=== PATIENT | female | born 1990 | race Caucasian/White ===

== ENCOUNTER 2022-05-19 18:34 | Outpatient (CLI) | payer OTHER, SELFPAY ==
[2022-05-20 00:27] LABS: Chlamydia DNA Amplified* NOT DETECTED (No Detected); GC DNA Amplified* NOT DETECTED (No Detected)
== END 2022-05-19 18:35 | disposition home or self-care (01) ==
LOC: LKVREF 18:35
PROVIDERS: PCP Emergency Medicine; Visit Provider Emergency Medicine
DX: Z20.2 Contact with and (suspected) exposure to infections with a predominantly sexual mode of transmission (principal); F41.9 Anxiety disorder, unspecified
CPT/HCPCS: 87491; 87591

== ENCOUNTER 2022-10-26 08:44 | Emergency (ER) | payer OTHER, SELFPAY ==
[2022-10-26] VITALS (8 sets, daily range): BP systolic 110–150; BP diastolic 71–97; PULSE 66–75; TEMP 36; O2SAT 97–98; BMI 21.8
[2022-10-26 09:38] LABS: Lactate* 0.6 mmol/L (0.5-1.9)
[2022-10-26 09:41] LABS: Appearance Urine Clear (Clear); Bilirubin Urine Negative (Negative); Blood Urine 1+ (Negative); Color Urine Yellow (Yellow); Glucose Urine Negative (Negative); Ketones Urine Negative (Negative); Leukocyte Esterase Urine Trace (Negative); Nitrite Urine Negative (Negative); Protein Urine Negative (Negative); pH Urine 6.5 (5.0-8.5)
[2022-10-26 09:42] LABS: Basophils Absolute Auto 0.01 K/uL (0.00-0.30); Basophils Percent Auto 0.2 % (0.0-3.0); Eosinophils Absolute Auto 0.13 K/uL (0.00-0.50); Eosinophils Percent Auto 2.3 % (0.0-7.0); Hematocrit 41.2 % (33.0-51.0); Immature Granulocytes Abs Auto 0.01 K/uL (0.00-0.30); Immature Granulocytes Pct Auto 0.2 %; Lymphocytes Percent Auto 14.2 % (20-44); Mean Corpuscular HGB Conc 34 gm/dL (32-36); Mean Corpuscular Hemoglobin 33 pg (26-34); Mean Corpuscular Volume 97 fL (80-100); Monocytes Percent Auto 8.9 % (0.0-11.0); Neutrophils Percent Auto 74.2 % (42.0-72.0); Platelet Count* 205 K/uL (140-440); RDW Coefficient of Variation % 13.1 % (11.5-15.5); Red Blood Count 4.25 m/uL (4.00-5.20)
[2022-10-26] MEDS: 0.9 % SODIUM CHLORIDE 1000 ml 1,000 ML IV (09:43)
[2022-10-26] MEDS: KETOROLAC 15 MG/ML inj IVP (09:43)
[2022-10-26] MEDS: ONDANSETRON 2 MG/ML inj 4 MG IVP (09:43)
[2022-10-26 09:44] LABS: Slide Review Reflex No
[2022-10-26 09:59] LABS: Bacteria Urine Few; Squamous Epithelial Cell Urine Many (None-Few); Ur HCG Qualitative* Negative (Negative); WBC Urine 0-2 (0-5)
[2022-10-26 10:08] LABS: Albumin* 4.1 g/dL (3.3-5.0); Chloride* 103 mmol/L (96-114)
[2022-10-26 10:09] LABS: Sodium* 134 mmol/L (135-149)
[2022-10-26 10:11] LABS: Aspartate Amino Transferase* 29 U/L (12-35); Bilirubin Direct* 0.3 mg/dL (0.0-0.5); Bilirubin Total* 0.7 mg/dL (0.1-1.5); Carbon Dioxide* 27 mmol/L (20-32); Creatinine* 0.7 mg/dL (0.5-1.5); Est. Creatinine Clearance* 106.01; Estimated Glomerular Filt Rate 116 ml/min; Total Protein* 7.3 g/dL (6.0-8.3)
[2022-10-26 10:12] LABS: Alanine Aminotransferase* 20 U/L (4-35); Alkaline Phosphatase* 64 U/L (40-150); Blood Urea Nitrogen* 11 mg/dL (5-24); Calcium* 8.7 mg/dL (8.4-10.6); Glucose* 113 mg/dL (60-115); Lipase* 63 U/L (23-300)
[2022-10-26 10:14] LABS: C Reactive Protein* 1.1 mg/dL (0.5-1.0)
[2022-10-26 10:24] LABS: SARS PCR* Negative SARS-CoV-2 (Negative)
--- NOTE | 2022-10-26 12:56 | ED_ITS ---
HPI - General Adult General Date Seen: 10/26/22 Chief complaint: Abdominal Pain Stated complaint: Abdominal/back pain/nausea Time Seen by Provider: 10/26/22 09:10 Source: patient Mode of arrival: ambulatory Limitations: no limitations History of Present Illness HPI narrative: Patient is a 32-year-old woman who comes in for evaluation of abdominal and back pain along with diarrhea which has been present for the past days. No one else at home has been sick. She has not had fevers although she has felt chilled. She says she just had a urinary tract infection a month ago and so she always worries about that a little bit but she has not had any urinary symptoms which would be typical for her. She has normal periods, her last period was about 3 weeks ago, no suspicion of . No new sexual partners or concerns about exposure to STDs. Abdominal pain is crampy and diffuse, mild to moderate in intensity. Radiates to her back into her hips. Related Data Previous Rx's Medication Instructions Recorded norgestrel 0.3 mg-ethinyl 1 tab PO DAILY #84 tabs 05/19/22 estradiol 30 mcg tablet escitalopram oxalate 5 mg tablet 5 mg PO QDAY #90 tabs 08/18/22 Allergies Allergy/AdvReac Type Severity Reaction Status Date / Time metronidazole Allergy Mild Rash Verified 05/19/22 17:46 Review of Systems Status of ROS: Reports: 10 or more systems reviewed and unremarkable except as noted in History and below [facility] Medical History Anxiety Contraception management Possible exposure to STD Family History Brother Diabetes Father Family history of early CAD Liver cancer Maternal Grandmother Breast cancer Social History Smoking Status: Never smoker How often do you have a drink containing alcohol: 2-3 times a week How many standard drinks containing alcohol do you have on a typical day: 1 or 2 How often do you have six or more drinks on one occasion: Never AUDIT-C Alcohol total score: 3 Non-prescribed substance use: denies use Little interest or pleasure in doing things: not at all Feeling down, depressed, or hopeless: not at all Exam Narrative: Exam Narrative: Vital signs as noted above. In general, an alert, well-appearing patient. Head: Normocephalic, atraumatic. Eyes: Pupils are equal reactive. Extraocular movements are full. Conjunctivae are normal. ENT: Mucous membranes are moist. Throat is normal. Neck: Supple without lymphadenopathy. Heart: Regular rate and rhythm. No murmur or rub. Lungs: Clear bilaterally. No increased work of breathing, crackles or wheezes. Abdomen: Soft with minimal diffuse tenderness, no rebound guarding or rigidity. Bowel sounds are active. Back: No CVA tenderness Extremities: Well perfused. No edema. No calf tenderness. Pulses intact. Neurologic: Patient is alert and oriented to person and place. Speech is fluent. Face is symmetric. Moves all extremities equally. Affect: Normal. Skin: Warm and dry. Well perfused. Const: Vital Signs, click to edit/add: Vital Signs - 24 hr 10/26/22 08:59 10/26/22 09:38 10/26/22 09:39 Temperature 96.8 F L Pulse Rate 70 70 Pulse Rate [Pulse Oximeter] 75 Blood Pressure 150/85 H Blood Pressure [Ri ght Upper Arm] 141/97 H Pulse Oximetry 97 98 97 Oxygen Delivery Me thod Room Air 10/26/22 10:00 10/26/22 10:23 10/26/22 10:30 Temperature Pulse Rate 68 69 66 Pulse Rate [Pulse Oximeter] Blood Pressure 125/81 Blood Pressure [Ri ght Upper Arm] Pulse Oximetry 97 98 97 Oxygen Delivery Me thod 10/26/22 10:32 10/26/22 11:02 Temperature Pulse Rate 67 70 Pulse Rate [Pulse Oximeter] Blood Pressure 120/79 110/71 Blood Pressure [Ri ght Upper Arm] Pulse Oximetry 97 97 Oxygen Delivery Me thod Documenting provider has reviewed patient's vital signs: yes Course Course Hospital Course: We placed an IV here. She had a L of normal saline. Diagnostic considerations include enteritis, appendicitis, diverticulitis, colitis, bowel obstruction, cholecystitis, pyelonephritis, pancreatitis. Labs overall reassuring. Her white count is 5.7, hemoglobin of 14. Mild left shift with 74% neutrophils. Diff of the [place] unremarkable. Electrolytes show a sodium of 134 otherwise normal. BUN and creatinine are normal. LFTs are unremarkable, CRP is essentially normal at 1.1. Lipase is 63. Urinalysis is negative aside from 1+ blood, 2-5 red cells, 0-2 white cells, she has many squames few bacteria. test is negative. COVID is negative as well. I do not think this represents another urinary tract infection or pyelonephritis for her. She does not have focal right upper quadrant tenderness and LFTs are normal, I do not think gallbladder imaging is necessary. She is feeling improved after Zofran a nd Toradol as well as fluids. She has not had previous abdominal surgery and I think bowel obstruction is unlikely. I think this likely represents enteritis and I think it is reasonable to let her go home. She can use ibuprofen or Tylenol as needed for discomfort. If she develops high fever, severe or localized abdominal pain, bloody stools or other worsening she should return for re-evaluation. Otherwise, discussed that symptoms likely will resolve over the next several days. If no improvement over the next week, recheck with primary care. Vital Signs Vital signs: Initial Vital Signs Temperature 96.8 F L 10/26/22 08:59 Temperature Source Temporal Artery Scan 10/26/22 08:59 Pulse Rate 75 10/26/22 08:59 Blood Pressure 141/97 H 10/26/22 08:59 Blood Pressure Mean 111 10/26/22 08:59 Blood Pressure Position Sitting 10/26/22 08:59 Pulse Oximetry 97 10/26/22 08:59 Oxygen Delivery Method 10/26/22 08:59 Vital Signs Temperature 96.8 F L 10/26/22 08:59 Pulse Rate 75 10/26/22 08:59 Blood Pressure 141/97 H 10/26/22 08:59 Pulse Oximetry 97 10/26/22 08:59 Oxygen Delivery Method 10/26/22 08:59 Temperature 96.8 F L 10/26/22 08:59 Pulse Rate 70 10/26/22 11:02 Blood Pressure 110/71 10/26/22 11:02 Pulse Oximetry 97 10/26/22 11:02 Oxygen Delivery Method 10/26/22 08:59 Medical Decision Making Lab Data Labs: Lab Results 10/26/22 10/26/22 10/26/22 Range/Units 09:21 09:30 09:30 WBC 5.70 (4.50-11.00) K/uL RBC 4.25 (4.00-5.20) m/uL Hgb 14.0 (12.0-16.0) gm/dL Hct 41.2 (33.0-51.0) % MCV 97 (80-100) fL MCH 33 (26-34) pg MCHC 34 (32-36) gm/dL RDW Coeff of Omar 13.1 (11.5-15.5) % Plt Count 205 (140-440) K/uL Neut % (Auto) 74.2 H (42.0-72.0) % Lymph % (Auto) 14.2 L (20-44) % [place] % (Auto) 8.9 (0.0-11.0) % Eos % (Auto) 2.3 (0.0-7.0) % Baso % (Auto) 0.2 (0.0-3.0) % Neut # (Auto) 4.20 (1.7-7.0) K/uL Lymph # (Auto) 0.80 L (0.90-2.90) K/uL [place] # (Auto) 0.50 (0.00-0.90) K/UL Eos # (Auto) 0.13 (0.00-0.50) K/uL Baso # (Auto) 0.01 (0.00-0.30) K/uL Sodium 134 L (135-149) mmol/L Potassium 4.0 (3.6-5.1) mmol/L Chloride 103 (96-114) mmol/L Carbon Dioxide 27 (20-32) mmol/L BUN 11 (5-24) mg/dL Creatinine 0.7 (0.5-1.5) mg/dL Estimated Creat Clear 106.01 Estimated GFR 116 ml/min Glucose 113 (60-115) mg/dL Lactate (0.5-1.9) mmol/L Calcium 8.7 (8.4-10.6) mg/dL Total Bilirubin 0.7 (0.1-1.5) mg/dL Direct Bilirubin 0.3 (0.0-0.5) mg/dL AST 29 (12-35) U/L ALT 20 (4-35) U/L Alkaline Phosphatase 64 (40-150) U/L C-Reactive Protein 1.1 H (0.5-1.0) mg/dL Total Protein 7.3 (6.0-8.3) g/dL Albumin 4.1 (3.3-5.0) g/dL Lipase 63 (23-300) U/L Urine Color Yellow (Yellow) Urine Appearance Clear (Clear) Urine pH 6.5 (5.0-8.5) Ur Specific [place] 1.020 (1.000-1.030) Urine Protein Negative (Negative) Urine Glucose (UA) Negative (Negative) Urine Ketones Negative (Negative) Urine Blood 1+ A (Negative) Urine Nitrite Negative (Negative) Urine Bilirubin Negative (Negative) Urine Urobilinogen 1.0 (0.2-1.0) Ur Leukocyte Esterase Trace A (Negative) Urine RBC 2-5 A (0-2) Urine WBC 0-2 (0-5) Ur Squamous Epith Cells Many A (None-Few) Urine Bacteria Few A (None) Urine HCG, Qual Negative (Negative) SARS-CoV-2 (PCR) (Negative) 10/26/22 10/26/22 Range/Units 09:30 09:30 WBC (4.50-11.00) K/uL RBC (4.00-5.20) m/uL Hgb (12.0-16.0) gm/dL Hct (33.0-51.0) % MCV (80-100) fL MCH (26-34) pg MCHC (32-36) gm/dL RDW Coeff of Omar (11.5-15.5) % Plt Count (140-440) K/uL Neut % (Auto) (42.0-72.0) % Lymph % (Auto) (20-44) % [place] % (Auto) (0.0-11.0) % Eos % (Auto) (0.0-7.0) % Baso % (Auto) (0.0-3.0) % Neut # (Auto) (1.7-7.0) K/uL Lymph # (Auto) (0.90-2.90) K/uL [place] # (Auto) (0.00-0.90) K/UL Eos # (Auto) (0.00-0.50) K/uL Baso # (Auto) (0.00-0.30) K/uL Sodium (135-149) mmol/L Potassium (3.6-5.1) mmol/L Chloride (96-114) mmol/L Carbon Dioxide (20-32) mmol/L BUN (5-24) mg/dL Creatinine (0.5-1.5) mg/dL Estimated Creat Clear Estimated GFR ml/min Glucose (60-115) mg/dL Lactate 0.6 (0.5-1.9) mmol/L Calcium (8.4-10.6) mg/dL Total Bilirubin (0.1-1.5) mg/dL Direct Bilirubin (0.0-0.5) mg/dL AST (12-35) U/L ALT (4-35) U/L Alkaline Phosphatase (40-150) U/L C-Reactive Protein (0.5-1.0) mg/dL Total Protein (6.0-8.3) g/dL Albumin (3.3-5.0) g/dL Lipase (23-300) U/L Urine Color (Yellow) Urine Appearance (Clear) Urine pH (5.0-8.5) Ur Specific [place] (1.000-1.030) Urine Protein (Negative) Urine Glucose (UA) (Negative) Urine Ketones (Negative) Urine Blood (Negative) Urine Nitrite (Negative) Urine Bilirubin (Negative) Urine Urobilinogen (0.2-1.0) Ur Leukocyte Esterase (Negative) Urine RBC (0-2) Urine WBC (0-5) Ur Squamous Epith Cells (None-Few) Urine Bacteria (None) Urine HCG, Qual (Negative) SARS-CoV-2 (PCR) Negative SARS-CoV-2 (Negative) Discharge Plan Discharge Clinical Impression: Enteritis Patient Disposition: Home, Self-Care Condition: Improved Instructions: Enteritis (ED) Additional Instructions: Ibuprofen or Tylenol as needed for abdominal/back pain. [place] diet, advance as symptoms improve. If you have severe/localized abdominal pain, high fevers, bloody stools or other worsening, return for re-evaluation. If you are not feeling better over the next several days, re-evaluate with Primary Care. Prescriptions: No Action norgestrel-ethinyl estradiol 0.3-30 mg-mcg tablet 1 tab PO DAILY Qty: 84 4RF Hold Instructions: unknown Rx Instructions: may elect to skip placebo pills escitalopram oxalate 5 mg tablet 5 mg PO QDAY Qty: 90 0RF Follow Up/Referrals: Altagracia Sandra MD [Primary Care Provider] - Stand Alone Forms: [employer] Info Instructions
== END 2022-10-26 11:13 | disposition home or self-care (01) ==
PROVIDERS: Emergency Provider Emergency Medicine; PCP Emergency Medicine
DX: K52.9 Noninfective gastroenteritis and colitis, unspecified (principal)
CPT/HCPCS: 36415; 80048; 80076; 81001; 81025; 83605; 83690; 85025; 86140; 87086; 87635; 96361; 96374; 96375; 99284; J1885; J2405; J7030

== ENCOUNTER 2023-05-17 07:42 | Emergency (ER) | payer OTHER, SELFPAY ==
[2023-05-17 07:46] VITALS: BP 133/87; PULSE 84; RESP 18; TEMP 37.1; O2SAT 99; BMI 24.2
--- NOTE | 2023-05-17 08:05 | ED.NURSE ---
small amount pale yellow emesis
--- NOTE | 2023-05-17 08:22 | ED_ITS ---
HPI - General Adult General Time Seen by Provider: 08:22 Date Seen: 05/17/23 Chief complaint: Unspecified Complaint, Adult Stated complaint: head to toe pain Time Seen by Provider: 05/17/23 08:08 Source: patient Mode of arrival: ambulatory Limitations: no limitations History of Present Illness HPI narrative: Patient is a 32-year-old female history of anxiety presenting to emergency department for generalized pain. She states for the past 3 days she has had full body pains which she describes as being from head to toe. States she has never felt this way before. She is not aware of any sick contacts with this image she is in the [employer] and had boot camp over the weekend. She took Tylenol ibuprofen yesterday which she states not help with her symptoms. Has not taken anything yet for today. She has not any fevers she is aware of but does admit she has felt warm. Had 1 episode of nausea with sure tumors improved when today and vomited. She is still feeling nauseated now. This is hard to describe pain as says it feels to be some areas within the muscle and other areas deeper. She denies any recent changes to her medications. Denies vision changes, shortness of breath, diarrhea, constipation, lightheadedness, dizziness. She states she had a UTI 1 week ago it was treated in her dysuria has resolved. She admits abdominal pain and chest pain but also states she has pain all over and it is difficult to localize. Related Data Previous Rx's Medication Instructions Recorded norgestrel 0.3 mg-ethinyl 1 tab PO DAILY #84 tabs 05/19/22 estradiol 30 mcg tablet escitalopram oxalate 5 mg tablet 5 mg PO QDAY #90 tabs 12/10/22 ondansetron 4 mg disintegrating 4 mg PO Q6H #20 tabs 05/17/23 tablet Allergies Allergy/AdvReac Type Severity Reaction Status Date / Time metronidazole Allergy Mild Rash Verified 05/19/22 17:46 Review of Systems Status of ROS: Reports: 10 or more systems reviewed and unremarkable except as noted in History and below [facility] Medical History Possible exposure to STD ?Z20.2 - Contact with and (suspected) exposure to infections with a predominantly sexual mode of transmission (ICD-10) Anxiety ?F41.9 - Anxiety disorder, unspecified (ICD-10) Contraception management ?Z30.9 - Encounter for contraceptive management, unspecified (ICD-10) Family History Brother Diabetes Father Family history of early CAD Liver cancer Maternal Grandmother Breast cancer Social History Smoking Status: Never smoker How often do you have a drink containing alcohol: 2-3 times a week How many standard drinks containing alcohol do you have on a typical day: 1 or 2 How often do you have six or more drinks on one occasion: Never AUDIT-C Alcohol total score: 3 Non-prescribed substance use: denies use Little interest or pleasure in doing things: not at all Feeling down, depressed, or hopeless: not at all Exam Narrative: Exam Narrative: Const: Well-nourished, Well-developed, in moderate distress Eyes: PERRL, no conjunctival injection, and symmetrical lids ENMT: Atraumatic external nose and ears. Moist mucous membranes. Neck: Symmetric, trachea midline, No thyromegaly. CVS: RRR, No murmurs or gallops. Peripheral pulses 2+ and equal in all extremities RESP: Unlabored respiratory effort. Clear to auscultation bilaterally. GI: Nontender/Nondistended, No rebound or guarding. MSK:Extremities w/o deformity, Normal Active ROM Skin: Warm, Dry. No rashes or lesions. Neuro: Normal Muscle tone, No focal neurological deficits. Psych: Awake, Alert, & Oriented x3. Appropriate mood and affect. Const: Vital Signs, click to edit/add: Vital Signs - 24 hr 05/17/23 07:46 Temperature 98.8 F Pulse Rate [Pulse Oximeter] 84 Respiratory Rate 18 Blood Pressure [Ri ght Upper Arm] 133/87 Pulse Oximetry 99 Oxygen Delivery Me thod Room Air Course Vital Signs Vital signs: Initial Vital Signs Temperature 98.8 F 05/17/23 07:46 Temperature Source Temporal Artery Scan 05/17/23 07:46 Pulse Rate 84 05/17/23 07:46 Respiratory Rate 18 05/17/23 07:46 Blood Pressure 133/87 05/17/23 07:46 Blood Pressure Mean 102 05/17/23 07:46 Blood Pressure Position Supine 05/17/23 07:46 Pulse Oximetry 99 05/17/23 07:46 Oxygen Delivery Method Room Air 05/17/23 07:46 Vital Signs Temperature 98.8 F 05/17/23 07:46 Pulse Rate 84 05/17/23 07:46 Respiratory Rate 18 05/17/23 07:46 Blood Pressure 133/87 05/17/23 07:46 Pulse Oximetry 99 05/17/23 07:46 Oxygen Delivery Method Room Air 05/17/23 07:46 Temperature 98.8 F 05/17/23 07:46 Pulse Rate 84 05/17/23 07:46 Respiratory Rate 18 05/17/23 07:46 Blood Pressure 133/87 05/17/23 07:46 Pulse Oximetry 99 05/17/23 07:46 Oxygen Delivery Method Room Air 05/17/23 07:46 Medical Decision Making MDM Narrative Medical decision making narrative: Patient is a 32-year-old female presented emergency department for all over body pain. History gone for 3 days. She is in the [employer] and had a camp over the weekend. She has had nausea and Reglan was given. Toradol was given for her pain. Has also been given 1 L of normal saline. She admits abdominal pain states that some same pain throughout her body. Did not believe imaging is necessary at this time with oral ordered CBC, CMP, lipase, urinalysis, urine test. She states the same thing for her chest pain so an EKG and troponin level were ordered. Patient is complaining of headaches but states she has had headaches like this before and I do not believe imaging is necessary. Patient's lab work returned showing no concerning abnormalities. EKG showed no concerning abnormalities. Vital signs have been stable throughout her time in the emergency department. After the medications she states her symptoms have greatly resolved and she feels much better at this time. Does appear her but she still seems to have UTI but she is asymptomatic from that standpoint I would not treated at this time. COVID/flu/RSV is negative. Based on patient's symptoms she has most likely suffering from some kind of viral syndrome. She is otherwise doing well me discharged home with Marcel. She is agreeable to this plan. Lab Data Labs: Lab Results 05/17/23 Range/Units 08:30 WBC 8.30 (4.50-11.00) K/uL RBC 4.06 (4.00-5.20) m/uL Hgb 13.5 (12.0-16.0) gm/dL Hct 40.0 (33.0-51.0) % MCV 99 (80-100) fL MCH 33 (26-34) pg MCHC 34 (32-36) gm/dL RDW Coeff of Omar 12.6 (11.5-15.5) % Plt Count 227 (140-440) K/uL Neut % (Auto) 58.8 (42.0-72.0) % Lymph % (Auto) 29.4 (20-44) % [place] % (Auto) 7.7 (0.0-11.0) % Eos % (Auto) 3.6 (0.0-7.0) % Baso % (Auto) 0.4 (0.0-3.0) % Neut # (Auto) 4.88 (1.7-7.0) K/uL Lymph # (Auto) 2.44 (0.90-2.90) K/uL [place] # (Auto) 0.60 (0.00-0.90) K/UL Eos # (Auto) 0.30 (0.00-0.50) K/uL Baso # (Auto) 0.03 (0.00-0.30) K/uL Abs Immat Gran (auto) 0.01 (0.00-0.30) K/uL Imm/Tot Granulo (auto) 0.1 % Sodium 137 (135-149) mmol/L Potassium 3.9 (3.6-5.1) mmol/L Chloride 105 (96-114) mmol/L Carbon Dioxide 25 (20-32) mmol/L BUN 12 (5-24) mg/dL Creatinine 0.8 (0.5-1.5) mg/dL Estimated Creat Clear 92.76 Estimated GFR 99 ml/min Glucose 109 (60-115) mg/dL Calcium 8.9 (8.4-10.6) mg/dL Total Bilirubin 0.4 (0.1-1.5) mg/dL AST 27 (12-35) U/L ALT 20 (4-35) U/L Alkaline Phosphatase 75 (40-150) U/L Troponin I < 0.01 L (0.01-0.04) ng/mL Total Protein 7.6 (6.0-8.3) g/dL Albumin 4.3 (3.3-5.0) g/dL Lipase 82 (23-300) U/L Urine Color Yellow (Yellow) Urine Appearance Slightly Cloudy A (Clear) Urine pH 7.5 (5.0-8.5) Ur Specific [place] >= 1.030 (1.000-1.030) Urine Protein Negative (Negative) Urine Glucose (UA) Negative (Negative) Urine Ketones Negative (Negative) Urine Blood Trace-intact A (Negative) Urine Nitrite Negative (Negative) Urine Bilirubin Negative (Negative) Urine Urobilinogen 0.2 (0.2-1.0) Ur Leukocyte Esterase Trace A (Negative) Urine RBC 2-5 A (0-2) Urine WBC 5-10 A (0-5) Ur Squamous Epith Cells Few (None-Few) Urine Bacteria Moderate A (None) Urine HCG, Qual Negative (Negative) SARS-CoV-2 (PCR) Negative SARS-CoV-2 (Negative) Influenza Type A (PCR) Negative PCR FLU A (Negative) Influenza Type B (PCR) Negative PCR FLU B (Negative) RSV (PCR) Negative PCR RSV (Negative) ECG Data Attestation: I personally reviewed and interpreted this ECG as follows: (Normal sinus rhythm at 90 beats per minute, normal intervals, normal axis, no ST or T- wave abnormalities) Prior ECG tracings: not available for review Discharge Plan Discharge Clinical Impression: Acute viral syndrome Patient Disposition: Home, Self-Care Condition: Improved Instructions: Viral Syndrome (ED) Additional Instructions: Your lab work was all normal appears secure suffering from a viral illness. COVID and flu were negative. Take Tylenol or ibuprofen for your pain and tries to have a painless the medication. Also recommend to use Zofran and stay well hydrated. Lab work does show you still might have a slight UTI but since you are not having any UTI symptoms specifically I will not treat it at this time if the symptoms worsen return to emergency department or see your primary care provider. Prescriptions: New ondansetron 4 mg tablet,disintegrating 4 mg PO Q6H Qty: 20 0RF No Action norgestrel-ethinyl estradiol 0.3-30 mg-mcg tablet 1 tab PO DAILY Qty: 84 4RF Hold Instructions: unknown Rx Instructions: may elect to skip placebo pills escitalopram oxalate 5 mg tablet 5 mg PO QDAY Qty: 90 0RF Follow Up/Referrals: Altagracia Sandra MD [Primary Care Provider] - Stand Alone Forms: [employer] Info Instructions
[2023-05-17 08:45] LABS: Basophils Absolute Auto 0.03 K/uL (0.00-0.30); Basophils Percent Auto 0.4 % (0.0-3.0); Eosinophils Percent Auto 3.6 % (0.0-7.0); Hemoglobin* 13.5 gm/dL (12.0-16.0); Immature Granulocytes Abs Auto 0.01 K/uL (0.00-0.30); Immature Granulocytes Pct Auto 0.1 %; Lymphocytes Absolute Auto 2.44 K/uL (0.90-2.90); Lymphocytes Percent Auto 29.4 % (20-44); Mean Corpuscular HGB Conc 34 gm/dL (32-36); Mean Corpuscular Hemoglobin 33 pg (26-34); Mean Corpuscular Volume 99 fL (80-100); Monocytes Percent Auto 7.7 % (0.0-11.0); Neutrophils Absolute Auto 4.88 K/uL (1.7-7.0); Neutrophils Percent Auto 58.8 % (42.0-72.0); Platelet Count* 227 K/uL (140-440); RDW Coefficient of Variation % 12.6 % (11.5-15.5); Red Blood Count 4.06 m/uL (4.00-5.20)
[2023-05-17 08:47] LABS: Appearance Urine Slightly Cloudy (Clear); Bilirubin Urine Negative (Negative); Blood Urine Trace-intact (Negative); Color Urine Yellow (Yellow); Glucose Urine Negative (Negative); Ketones Urine Negative (Negative); Leukocyte Esterase Urine Trace (Negative); Nitrite Urine Negative (Negative); Protein Urine Negative (Negative); Specific Gravity Urine >= 1.030 (1.000-1.030); Urobilinogen Urine 0.2 (0.2-1.0); pH Urine 7.5 (5.0-8.5)
[2023-05-17 08:48] LABS: Slide Review Reflex No
[2023-05-17] MEDS: KETOROLAC 15 MG/ML inj IVP (08:50)
[2023-05-17] MEDS: LACTATED RINGERS 1000 ML 1,000 ML IV (08:50)
[2023-05-17 08:57] LABS: Bacteria Urine Moderate; Squamous Epithelial Cell Urine Few (None-Few)
[2023-05-17] MEDS: METOCLOPRAMIDE HCL 5 MG/ML INJ 10 MG IVP (08:57)
[2023-05-17 09:03] LABS: Ur HCG Qualitative* Negative (Negative)
[2023-05-17 09:06] LABS: Albumin* 4.3 g/dL (3.3-5.0); Chloride* 105 mmol/L (96-114); Sodium* 137 mmol/L (135-149)
[2023-05-17 09:07] LABS: Potassium* 3.9 mmol/L (3.6-5.1)
[2023-05-17 09:09] LABS: Alanine Aminotransferase* 20 U/L (4-35); Alkaline Phosphatase* 75 U/L (40-150); Aspartate Amino Transferase* 27 U/L (12-35); Bilirubin Total* 0.4 mg/dL (0.1-1.5); Blood Urea Nitrogen* 12 mg/dL (5-24); Carbon Dioxide* 25 mmol/L (20-32); Creatinine* 0.8 mg/dL (0.5-1.5); Est. Creatinine Clearance* 92.76; Estimated Glomerular Filt Rate 99 ml/min; Glucose* 109 mg/dL (60-115); Total Protein* 7.6 g/dL (6.0-8.3)
[2023-05-17 09:10] LABS: Calcium* 8.9 mg/dL (8.4-10.6); Lipase* 82 U/L (23-300)
[2023-05-17 09:22] LABS: Troponin I* < 0.01 ng/mL (0.01-0.04)
[2023-05-17 09:29] LABS: PCR FLU A Negative PCR FLU A (Negative); PCR FLU B Negative PCR FLU B (Negative); PCR RSV Negative PCR RSV (Negative)
[2023-05-17 09:37] LABS: SARS PCR* Negative SARS-CoV-2 (Negative)
== END 2023-05-17 10:18 | disposition home or self-care (01) ==
PROVIDERS: Emergency Provider Student in an Organized Health Care Education/Training Program; PCP Emergency Medicine
DX: B34.9 Viral infection, unspecified (principal)
CPT/HCPCS: 36415; 80053; 81001; 81025; 83690; 84484; 85025; 87086; 87631; 93005; 96374; 96375; 99283; 99284; J1885; J2765; J7120

== ENCOUNTER 2023-05-27 16:10 | Outpatient (CLI) | payer OTHER, SELFPAY | END 2023-05-27 16:11 | disposition home or self-care (01) | LOC: NFLDREF 05-28 05:27 | PROVIDERS: PCP Emergency Medicine; Referring Provider Emergency Medicine; Visit Provider Physician Assistant | DX: N39.0 Urinary tract infection, site not specified (principal) | CPT/HCPCS: 87086 ==

== ENCOUNTER 2023-06-01 17:28 | Outpatient (CLI) | payer OTHER, SELFPAY | END 2023-06-01 17:29 | disposition home or self-care (01) | LOC: NFLDREF 06-04 14:04 | PROVIDERS: PCP Emergency Medicine; Referring Provider Emergency Medicine; Visit Provider Physician Assistant | DX: N39.0 Urinary tract infection, site not specified (principal); N89.8 Other specified noninflammatory disorders of vagina; N76.0 Acute vaginitis; B96.89 Other specified bacterial agents as the cause of diseases classified elsewhere | CPT/HCPCS: 87086 ==